=== PATIENT | male | born 1995 | race Caucasian/White ===

== ENCOUNTER 2022-12-27 12:16 | Emergency (ER) | payer BC, SELFPAY ==
--- NOTE | ~2022-12-27 | CT_ITS ---
EXAMINATION: CT soft tissue neck w con DATE: 12/27/2022 15:38 INDICATION: Possible left peritonsillar abscess TECHNIQUE: Computed tomography (CT) of the neck was performed with 75 mL Omnipaque-350 intravenous co ntrast. Automated exposure control and iterative reconstruction technique were employed. The dose-desire gth product was 553.01 mGy-cm. COMPARISON: None FINDINGS: There is asymmetric enlargement of the left peritonsillar abscess with approximately 1.5 x 1.2 cm low density peritonsillar abscess along the deep margin of the enlarged tonsil. There is asymmetric stra nding of fat in the left parapharyngeal space extending into the subcutaneous tissues in the left sub mandibular region. The epiglottis and retropharyngeal soft tissues are unremarkable. Bilateral likely reactive lymphadenopathy along the suprahyoid jugular chains. Additional mildly prominent but still normal-sized lymph nodes in the bilateral posterior cervical triangles. The thyroid and bilateral par otid and submandibular glands are normal orbits are normal. Mastoid air cells and middle ear cavities are clear. Mucous retention cyst in the left maxillary sinus. Visualized cervical vasculature appear s patent and normal in caliber. Visualized upper lungs are clear. Likely positional straightening of the normal cervical lordosis. Bones are otherwise unremarkable. IMPRESSION: 1. 1.5 x 1.2 cm peritonsillar abscess along the deep margin of the asymmetric enlarged left palatine tonsil. 2. Likely reactive cervical lymphadenopathy. Reviewed, dictated and finalized at location A. IMPRESSION: 1. 1.5 x 1.2 cm peritonsillar abscess along the deep margin of the asymmetric e nlarged left palatine tonsil. 2. Likely reactive cervical lymphadenopathy.
[2022-12-27 12:53] VITALS: BP 141/76; PULSE 88; RESP 16; TEMP 37.7; O2SAT 100
[2022-12-27 13:12] VITALS: BP 138/75; PULSE 88; RESP 15; O2SAT 99
[2022-12-27 13:41] LABS: Strep Group A RT-PCR NOT DETECTED (Negative)
--- NOTE | 2022-12-27 14:08 | ED.GENADULT ---
HPI - General Adult General Chief complaint: Unspecified Stated complaint: L tonsil swollen, sent from Time Seen by Provider: 12/27/22 13:43 History of Present Illness HPI narrative: Patient is a 27-year-old male presenting with sore throat. Patient states that earlier this week he developed cold-like symptoms with a runny nose and sore throat. States that for the last couple of days he has had severe throat pain and swelling. States that it hurts a lot to swallow so he has been eating only soft foods. He went to urgent care today who offered antibiotics versus coming to the ER for evaluation and he came in for evaluation because his pain is significant. Denies difficulty breathing or shortness of breath. No fevers or chills. No nausea or vomiting. No further complaints. Related Data Allergies Allergy/AdvReac Type Severity Reaction Status Date / Time No Known Allergies Allergy Verified 12/27/22 12:17 Review of Systems Review of Systems: All systems reviewed & are unremarkable except as noted in HPI and below Exam Narrative: GENERAL: Nontoxic and in no acute distress. HEAD: Normocephalic, atraumatic. EYES: PERRLA and EOMI. ENT: Left tonsil edematous and erythematous, no obvious exudates, handling secretions well NECK: Supple. CHEST: Airway patent, no respiratory distress. HEART: Regular rate and rhythm ABDOMEN: Nondistended EXTREMITIES: Normal range of motion. No edema. SKIN: Warm, dry, no rash. NEURO: No focal deficits. Alert and oriented x3. PSYCH: Normal mood and affect. Course Vital Signs Vital signs: Vital Signs Temperature 99.8 F H 12/27/22 12:53 Pulse Rate 88 12/27/22 12:53 Respiratory Rate 16 12/27/22 12:53 Blood Pressure 141/76 H 12/27/22 12:53 Pulse Oximetry 100 12/27/22 12:53 Oxygen Delivery Room Air 12/27/22 12:53 Temperature 99.8 F H 12/27/22 15:14 Pulse Rate 78 12/27/22 17:02 Respiratory Rate 18 12/27/22 17:02 Blood Pressure 122/57 L 12/27/22 17:02 Pulse Oximetry 98 12/27/22 17:02 Oxygen Delivery Room Air 12/27/22 12:53 Medical Decision Making [facility] Narrative Medical decision making narrative: Patient is a 27-year-old male presenting with concerns for possible peritonsillar abscess. Vitals are stable. Exam remarkable for the above. Airway is patent. He is handling his secretions well. His left tonsillar left tonsil is quite swollen and erythematous. Plan for labs, CT soft tissue neck. Will give steroids, Toradol, fluids, dose of Unasyn. CT soft tissue neck with a 1.5 x 1.2 cm left peritonsillar abscess in the deep margin of the left tonsil. Blood work with leukocytosis as expected. On reevaluation, the patient states that his pain has significantly improved. He feels comfortable going home. Do not feel that he requires needle aspiration at this time. We will send in for Augmentin and advised to ENT and PCP follow-up. Appropriate return precautions given. Patient voiced understanding and is agreeable with plan. Discharged in stable condition. Differential Diagnosis Differential Diagnosis: Strep throat, pharyngitis, peritonsillar abscess, retropharyngeal abscess Medical Records Medical records reviewed: Yes I reviewed the external patient's medical records. Vital Signs Vital Signs: Vital Signs Temperature 99.8 F H 12/27/22 12:53 Pulse Rate 88 12/27/22 12:53 Respiratory Rate 16 12/27/22 12:53 Blood Pressure 141/76 H 12/27/22 12:53 Pulse Oximetry 100 12/27/22 12:53 Oxygen Delivery Room Air 12/27/22 12:53 Temperature 99.8 F H 12/27/22 15:14 Pulse Rate 78 12/27/22 17:02 Respiratory Rate 18 12/27/22 17:02 Blood Pressure 122/57 L 12/27/22 17:02 Pulse Oximetry 98 12/27/22 17:02 Oxygen Delivery Room Air 12/27/22 12:53 Lab Data Lab results reviewed: Yes I reviewed the patient's lab results. 12/27/22 14:22 12/27/22 14:22 Labs: Lab Results 12/27/22 12/27/22 Rang
[2022-12-27] MEDS: SODIUM CHLORIDE 0.9% IV 1,000 ML 999 ML IV CONT (14:23)
[2022-12-27] MEDS: AMPICILLIN SULB 3 GM/NS 100 ML 3 GM/100 ML VIAL IVPB (14:23)
[2022-12-27] MEDS: KETOROLAC 30 MG/ML VIAL (*BKC) IV PUSH (14:23)
[2022-12-27 14:28] VITALS: BP 145/77; PULSE 84; RESP 15; TEMP 38.4; O2SAT 98
[2022-12-27 14:30] LABS: Basophils Absolute Auto 0.1 K/mm3 (0.0-0.1); Basophils Percent Auto 0.4 % (0.2-1.2); Eosinophils Absolute Auto 0.1 K/mm3 (0-0.3); Eosinophils Percent Auto 0.8 % (0-4.4); Hematocrit 46.4 % (42.0-52.0); Hemoglobin 15.8 g/dL (14.0-18.0); Immature Granulocyte Absolute 0.05 K/mm3 (0.00-0.031); Immature Granulocyte Percent A 0.3 % (0-0.5); Lymphocytes Absolute Auto 1.61 K/mm3 (0.9-3.2); Lymphocytes Percent Auto 10.3 % (18.3-44.2); Mean Corpuscular HGB Conc 34.1 g/dl (32-36); Mean Corpuscular Hemoglobin 29.5 pg (26-34); Mean Corpuscular Volume 86.7 fl (80-100); Mean Platelet Volume 8.6 fl (7.4-10.4); Monocytes Absolute Auto 1.7 K/mm3 (0.1-0.6); Monocytes Percent Auto 10.6 % (2.6-8.5); Neutrophils Absolute Auto 12.2 K/mm3 (1.3-6.7); Neutrophils Percent Auto 77.6 % (45.5-73.1); Platelet Count Result 270 k/mm3 (150-375); Red Blood Count 5.35 M/mm3 (4.6-6.20); Red Cell Distribution Width 11.9 % (11.5-14.5); White Blood Count 15.7 K/mm3 (4.5-10.0)
[2022-12-27 14:58] LABS: Alanine Aminotransferase 19 U/L (6-50); Albumin Level 4.7 g/dL (3.5-5.1); Alkaline Phosphatase 60 U/L (38-126); Anion Gap 6 mmol/L (8-16); Aspartate Amino Transferase 25 U/L (17-59); Bilirubin,Total 0.7 mg/dL (0.2-1.3); Blood Urea Nitrogen 7 mg/dL (9-20); Calcium 9.5 mg/dL (8.4-10.2); Carbon Dioxide 34 mmol/L (22-30); Chloride 100 mmol/L (98-107); Estimated CRCL calculation 134 ml/min; Estimated Glomerular Filt Rate > 60; Glucose 89 mg/dL (65-110); Sodium 140 mmol/L (137-145)
[2022-12-27 15:14] VITALS: TEMP 37.7
[2022-12-27 17:02] VITALS: BP 122/57; PULSE 78; RESP 18; O2SAT 98
== END 2022-12-27 17:03 | disposition home or self-care (01) ==
PROVIDERS: Emergency Medicine; Emergency Provider Emergency Medicine
DX: J36 Peritonsillar abscess (principal)
CPT/HCPCS: 36415; 70491; 80053; 85025; 87651; 96365; 96375; 99284; J0295; J1100; J1885; J7030; Q9967